=== PATIENT | male | born 2000 | race Caucasian/White ===

== ENCOUNTER 2022-07-29 22:29 | Emergency (ER) | payer BC ==
[~2022-07-29] VITALS: Ht 167.6 cm; Wt 66.7 kg
[2022-07-29 23:50] VITALS: BP 112/66
--- NOTE | 2022-07-29 23:56 | NUR ---
TO LOBBY A/W BED AMBULATORY
--- NOTE | 2022-07-30 00:03 | NUR ---
SEEN AND EXAMINED BY CAMILA
[2022-07-30 00:20] VITALS: BP 112/66
--- NOTE | 2022-07-30 00:20 | NUR ---
Patient discharged with v/s stable. Written and verbal after care instructions given and explained. Patient verbalized understanding. Ambulatory with steady gait. All questions addressed prior to discharge. Advised to follow up with PMD.
== END 2022-07-30 00:20 | disposition home or self-care (01) ==
LOC: MED 22:29
DX: S06.0X0A Concussion without loss of consciousness, initial encounter (principal); X58.XXXA Exposure to other specified factors, initial encounter; Y93.89 Activity, other specified; Y92.89 Other specified places as the place of occurrence of the external cause; Y99.8 Other external cause status
CPT/HCPCS: 99281